=== PATIENT | female | born 1980 | race African-American/Black ===

== ENCOUNTER 2020-04-25 14:59 | Emergency (ER) | payer OTHER ==
[~2020-04-25] VITALS: Ht 157.5 cm; Wt 64.9 kg
[~2020-04-25 14:59] MED LIST: COLACE100 MG ORAL; IBUPROFEN600 MG ORAL; SEROQUEL100 MG ORAL
[2020-04-25] MEDS ORDERED: Mylanta II UD 30ml ORAL ONE (15:15)
[2020-04-25] MEDS ORDERED: Dicyclomine HCl 10mg/5ml oral soln ORAL ONE (15:15)
[2020-04-25] MEDS ORDERED: Lidocaine 2% Visc 15ml soln ORAL ONE (15:15)
--- NOTE | 2020-04-25 15:17 | Emergency Room Report ---
History of Present Illness General Chief Complaint: Abdominal Pain Source: Patient Present Illness HPI Disclaimer: Please note that this report is being documented using [employer] technology. This can lead to erroneous entry secondary to incorrect interpretation by the dictating instrument. HPI: 39-year-old -0-2-1 female unknown gestational age presents for evaluation of abdominal pain. Patient reporting sharp and burning epigastric pain that does not radiate has been intermittent for days. She had episodes of vomiting and diarrhea 2 days ago but now resolved. Denies fever or chills. Denies pain in the lower abdomen. Denies vaginal bleeding, vaginal discharge, leakage of fluid, lower pelvic pain, flank pain. Patient took a home urine test 2 weeks ago that was positive and confirmed by blood test at her [employer]. LMP was over 2 months ago was unsure of exact dating. Has not yet had an ultrasound. Denies prior history of abdominal surgery. Pain appears to be getting better though had a wave of pain earlier this afternoon caused her to come to the ER. Has not taken any medication prior to arrival. 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 EOMI. Cardiovascular: RRR. S1 and S2 normal. No murmur appreciated Resp: Normal work of breathing. No cough, wheezing or crackles appreciated Abdomen: Abdomen is soft, nondistended. Mild tenderness palpation epigastrium. No significant tenderness in the right or left upper quadrants. Negative Michaud's. No tenderness in the periumbilical region, suprapubic region or lower quadrants. There is no rebound. No guarding. Nonrigid abdomen. Skin: Intact. No abrasions, laceration or rash over the exposed skin MSK: Normal tone and bulk. Moving all extremities. No obvious deformity. Neuro: Awake and alert. Mentating appropriately. Medical Decision Making Diagnostic Impression: Primary Impression: First trimester Additional Impression: Gastritis ER Course Is a 39-year-old female presenting for evaluation of abdominal pain. She is recently found out she is but denies any complications of such as vaginal bleeding or lower pelvic pain. Pain appears to be located in the epigastrium more consistent with a gastritis, ulcer or gastroenteritis. She has had problems with reflux in the past and has been eating a lot of spicy foods recently. Also on the differential are pancreatitis, cholecystitis, complication , nephrolithiasis among others. Labs returned largely within normal limits. hormone elevated. Ultrasound shows a single intrauterine approximately 11 weeks gestation with adequate heart rate and no free fluid visible. Patient will follow up with [employer]. Started on vitamins and famotidine for presumed gastritis. Instructed to return with new or worsening symptoms. Stable for outpatient follow-up. Laboratory Tests Test 04/25/20 15:21 04/25/20 15:22 White Blood Count 12.4 K/UL (4.8-10.8) H Red Blood Count 3.38 M/UL (4.20-5.40) L Hemoglobin 11.5 G/DL (12.0-16.0) L Hematocrit 33.8 % (37.0-47.0) L Mean Corpuscular Volume 100 FL (80-99) H Mean Corpuscular Hemoglobin 33.9 PG (27.0-31.0) H Mean Corpuscular Hemoglobin Concent 33.9 G/DL (32.0-36.0) Red Cell Distribution Width 12.1 % (11.6-14.8) Platelet Count 261 K/UL (150-450) Mean Platelet Volume 6.7 FL (6.5-10.1) Neutrophils (%) (Auto) 55.3 % (45.0-75.0) Lymphocytes (%) (Auto) 35.7 % (20.0-45.0) Monocytes (%) (Auto) 7.1 % (1.0-10.0) Eosinophils (%) (Auto) 0.8 % (0.0-3.0) Basophils (%) (Auto) 1.0 % (0.0-2.0) Sodium Level 135 MMOL/L (136-145) L Potassium Level 4.1 MMOL/L (3.5-5.1) Chloride Level 100 MMOL/L (98-107) Carbon Dioxide Level 23 MMOL/L (21-32) Anion Gap 12 mmol/L (5-15) Blood Urea Nitrogen 8 mg/dL (7-18) Creatinine 0.5 MG/DL (0.55-1.30) L Estimated Glomerular Filtration Rate > 60 mL/min (>60) Glucose Level 97 MG/DL (74-106) Calcium Level 9.7 MG/DL (8.5-10.1) Total Bilirubin 0.4 MG/DL (0.2-1.0) Aspartate Amino Transferase (AST) 26 U/L (15-37) Alanine Aminotransferase (ALT) 14 U/L (12-78) Alkaline Phosphatase 51 U/L (46-116) Total Protein 7.3 G/DL (6.4-8.2) Albumin 3.5 G/DL (3.4-5.0) Globulin 3.8 g/dL Albumin/Globulin Ratio 0.9 (1.0-2.7) L Lipase 93 U/L (73-393) Human Chorionic Gonadotropin, Quant 62652 mIU/mL (1-6) H Urine Color Yellow Urine Appearance Slightly cloudy Urine pH 8 (4.5-8.0) Urine Specific [place] 1.010 (1.005-1.035) Urine Protein Negative (NEGATIVE) Urine Glucose (UA) Negative (NEGATIVE) Urine Ketones Negative (NEGATIVE) Urine Blood 1+ (NEGATIVE) H Urine Nitrite Negative (NEGATIVE) Urine Bilirubin Negative (NEGATIVE) Urine Urobilinogen 1 MG/DL (0.0-1.0) H Urine Leukocyte Esterase 1+ (NEGATIVE) H Urine RBC 0-2 /HPF (0 - 2) Urine WBC 0-2 /HPF (0 - 2) Urine Squamous Epithelial Cells Moderate /LPF (NONE/OCC) H Urine Bacteria Few /HPF (NONE) CT/MRI/US Diagnostic Results CT/MRI/US Diagnostic Results : Impression IMPRESSION: 1. Single live intrauterine with ultrasound age of 10 weeks and 6 days and estimated date of delivery of 11/15/2020. 2. Nonvisualized left ovary, remainder of the pelvic ultrasound unremarkable. Dictated By: Maegan Vallejo M.D. Electronically Signed By:Maegan Vallejo M.D. Signed Date/Time 04/25/20 1820 Last Vital Signs Date Time Temp Pulse Resp B/P (MAP) Pulse Ox O2 Delivery O2 Flow Rate FiO2 04/25/20 15:02 98.2 77 19 109/63 (78) 96 Room Air Disposition: HOME, SELF-CARE Condition: Stable Scripts #103/Iron Fumarate/Fa ( TABLET) 1 Each Tablet 1 EACH PO DAILY, #60 TAB Prov: Ramy Calle MD 04/25/20 Famotidine* (Pepcid 20mg tablet*) 20 Mg Tablet 20 MG ORAL DAILY for Gerd, #30 TAB 0 Refills Prov: Ramy Calle MD 04/25/20 Ramy Calle MD Apr 25, 2020 15:17
[2020-04-25 15:25] VITALS: BP 109/63
--- NOTE | 2020-04-25 15:40 | NUR ---
Nurse Note: Pt arrived c/o abd pain, n/v since one week. 8/10 pain; burning and sharp pain that is nonradaiting. Pt stated she has been eating a lot of spicy foods which is unusal for her. Pt stated her LMP was february 2020; states she is . Pt denies diarrhea currently. Pt stated she stopped smoking marijuana when she found out she became . IV est, blood drawn; urine collected and sent to lab.
[2020-04-25 15:41] LABS: EOSINOPHILS % (AUTO) 0.8 % (0.0-3.0); HEMATOCRIT 33.8 % (37.0-47.0); HEMOGLOBIN 11.5 G/DL (12.0-16.0); LYMPHOCYTES % (AUTO) 35.7 % (20.0-45.0); MEAN CORPUSCULAR VOLUME 100 FL (80-99); MONOCYTES % (AUTO) 7.1 % (1.0-10.0); NEUTROPHILS % (AUTO) 55.3 % (45.0-75.0); PLATELET COUNT 261 K/UL (150-450); RED BLOOD COUNT 3.38 M/UL (4.20-5.40); RED CELL DISTRIBUTION WIDTH 12.1 % (11.6-14.8); WHITE BLOOD COUNT 12.4 K/UL (4.8-10.8)
[2020-04-25 15:58] LABS: BILIRUBIN, URINE NEGATIVE (NEGATIVE); GLUCOSE, URINE (UA) NEGATIVE (NEGATIVE); KETONES,URINE NEGATIVE (NEGATIVE); LEUKOCYTE ESTERASE ,URINE 1+ (NEGATIVE); NITRITE,URINE NEGATIVE (NEGATIVE); PH,URINE 8 (4.5-8.0); PROTEIN,URINE NEGATIVE (NEGATIVE); UROBILINOGEN,URINE 1 MG/DL (0.0-1.0)
[2020-04-25 16:21] LABS: APPEARANCE,URINE SLIGHTLY CLOUDY; COLOR,URINE YELLOW
[2020-04-25] MEDS ORDERED: Acetaminophen 500mg (ES) tab ORAL ONE (17:00)
[2020-04-25 17:04] LABS: ANION GAP 12 mmol/L (5-15); BLOOD UREA NITROGEN 8 mg/dL (7-18); CALCIUM 9.7 MG/DL (8.5-10.1); CARBON DIOXIDE 23 MMOL/L (21-32); CHLORIDE 100 MMOL/L (98-107); CREATININE 0.5 MG/DL (0.55-1.30); POTASSIUM 4.1 MMOL/L (3.5-5.1); SODIUM 135 MMOL/L (136-145)
--- NOTE | 2020-04-25 17:05 | NUR ---
Nurse Note: Pt stated pain, MD aware and medication ordered. US at pt side.
[2020-04-25 17:09] LABS: ALANINE AMINOTRANSFERASE 14 U/L (12-78); ALBUMIN 3.5 G/DL (3.4-5.0); ALBUMIN/GLOBULIN RATIO 0.9 (1.0-2.7); ALKALINE PHOSPHATASE 51 U/L (46-116); ASPARTATE AMINO TRANSFERASE 26 U/L (15-37); BILIRUBIN,TOTAL 0.4 MG/DL (0.2-1.0)
[2020-04-25] MEDS ORDERED: FAMOTIDINE20 MG ORAL (17:10)
[2020-04-25 18:05] VITALS: BP 116/70
--- NOTE | 2020-04-25 18:05 | NUR ---
ED Nurse Note: Pt cleared by health care Provider for discharge. DC instructions/prescription was given and explained to pt and verbalized understanding of teachings. Instructed pt to follow up with PCP within 2-4 days. All medical deviecs such as ID band removed; IV removed, site clean and bandaged. Pt is AAO x4, ambulatory and left with all personal belongings.
--- NOTE | 2020-04-25 18:21 | Diagnostic Imaging Report ---
EXAM: US First Trimester , Transabdominal CLINICAL HISTORY: ABD PAIN TECHNIQUE: Real-time transabdominal obstetrical ultrasound of the maternal pelvis and a first trimester with image documentation. COMPARISON: None. FINDINGS: Gestation: A single intrauterine seen with ultrasound age of 10 weeks and 6 days and estimated date of delivery of 11/15/2020. The LMP age is 8 weeks and 2 days with estimated date of delivery of 12/03/2020. The crown-rump length measures 3.3 cm corresponding to 10 weeks and 2 days. Gestational sac measures 6.0 cm corresponding to 11 weeks and 3 days. Normal cardiac activity of 157 bpm. Normal yolk sac seen. Placenta/amniotic fluid: Cannot be adequately evaluated due to the early gestational age. Uterus/cervix: The uterus measures 8.9 x 8.1 x 6.5 cm. No myometrial mass. Ovaries: Bilateral ovaries are not visualized due to body habitus and gas artifact in the bowel. The right ovary measures 2.6 x 3.7 x 2.3 cm. The left ovary is not visualized. Free fluid: No free fluid. IMPRESSION: 1. Single live intrauterine with ultrasound age of 10 weeks and 6 days and estimated date of delivery of 11/15/2020. 2. Nonvisualized left ovary, remainder of the pelvic ultrasound unremarkable.
== END 2020-04-25 18:05 | disposition home or self-care (01) ==
LOC: EMR 15:35
DX: O99.611 Diseases of the digestive system complicating pregnancy, first trimester (principal); K29.70 Gastritis, unspecified, without bleeding; Z3A.10 10 weeks gestation of pregnancy
CPT/HCPCS: 36415; 76801; 76817; 80053; 81003; 83690; 84702; 85025; 96374; 99284; J2405

== ENCOUNTER 2020-07-11 19:32 | Emergency (ER) | payer OTHER ==
[~2020-07-11] VITALS: Ht 157.5 cm; Wt 69.4 kg
[~2020-07-11 19:32] MED LIST changes: +FAMOTIDINE20 MG ORAL
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
[2020-07-11] MEDS ORDERED: HYDROcodone/Acetamin 5/325 tab ORAL ONE (20:15)
[2020-07-11 20:28] VITALS: BP 101/66
--- NOTE | 2020-07-11 21:03 | NUR ---
Pt still in US, will await to administer [place] when she returns.
--- NOTE | 2020-07-11 21:59 | Diagnostic Imaging Report ---
EXAM: US Left Breast, Limited CLINICAL HISTORY: Pain TECHNIQUE: Limited real time ultrasound of the left breast with image documentation, including axilla when performed. COMPARISON: No relevant prior studies available. FINDINGS: Left breast: No mass or suspicious lesion of the left breast or axilla. No ductal ectasia. No fluid collection. IMPRESSION: No acute findings. No sonographic evidence of malignancy. ASSESSMENT: BI-RADS 1: Negative.
[2020-07-11] MEDS ORDERED: LIDODERM700 M1 TOPIC (22:02)
--- NOTE | 2020-07-11 22:24 | NUR ---
Pt awake and alert, pt reports continued but decreased upper back and L breast pain, respirations even and unlabored, skin signs normal, no SS of respiratory distress, neuro intact, OK to discharge per ED Daryn JONES.
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
== END 2020-07-11 22:26 | disposition home or self-care (01) ==
LOC: EMR 21:29
DX: O26.892 Other specified pregnancy related conditions, second trimester (principal); S29.012A Strain of muscle and tendon of back wall of thorax, initial encounter; V43.62XA Car passenger injured in collision with other type car in traffic accident, initial encounter; Y92.410 Unspecified street and highway as the place of occurrence of the external cause; Z3A.21 21 weeks gestation of pregnancy
CPT/HCPCS: 76805; 76817; 99284